=== PATIENT | female | born 1975 | race Caucasian/White ===

== ENCOUNTER 2024-06-15 15:32 | Emergency (ER) | payer OTHER, SELFPAY ==
--- NOTE | ~2024-06-15 | CT_ITS ---
EXAMINATION: CT brain wo con DATE: 06/15/2024 16:01 INDICATION: head injury . TECHNIQUE: Computed tomography (CT) of the head was performed without intravenous contrast. The mA wa s adjusted according to patient size. Iterative reconstruction technique was employed. The dose-lengt h product was 529.67 mGy-cm. COMPARISON: None. FINDINGS: No acute intracranial hemorrhage or extra-axial fluid collection. No hydrocephalus, mass, or herniation. No acute ischemic infarct. Unremarkable dural venous sinus attenuation. No acute osseous abnormality. Bilateral mastoid fluid. Pansinus mucosal thickening. Air-fluid level in the sphenoid sinus. IMPRESSION: No acute intracranial process. Sphenoid sinus findings may indicate acute sinusitis in the appropriate clinical context. Reviewed, dictated and finalized at location K. AGE [employer]ER IMPRESSION: No acute intracranial process. Sphenoid sinus findings may indicate acute sinusitis in the appropriate clinica l context.
--- NOTE | ~2024-06-15 | XR_ITS ---
EXAMINATION: XR chest 2V 06/15/2024 16:07 INDICATION: Seizure. PROCEDURE: PA and lateral views of the chest COMPARISON: None FINDINGS: The lungs are clear. The cardiomediastinal silhouette is within normal limits. There are no pleural effusions. There is no pneumothorax suspected. IMPRESSION: 1: NO ACUTE CARDIOPULMONARY DISEASE. Reviewed, dictated and finalized at location A. T STAFF
[2024-06-15 15:41] VITALS: BP 150/96; PULSE 85; RESP 20; TEMP 37; O2SAT 99
--- NOTE | 2024-06-15 15:48 | ECG_ITS ---
Test Date: 2024-06-15 16:37:09 Measurements Intervals [place] Rate: 77 P: 40 DC: 132 QRS: 49 QRSD: 82 T: 44 QT: 365 QTc: 415 Interpretive Statements SINUS RHYTHM POSSIBLE LEFT ATRIAL ENLARGEMENT [-0.1mV P WAVE IN V1/V2] No previous ECG available for comparison Electronically Signed On 06-15-2024 22:39:30 TALENT ADVISOR by Ashleigh Sprague M.D.
--- NOTE | 2024-06-15 15:48 | ED.SEIZURE ---
HPI - Seizure General Chief Complaint: Seizure <Mariajose Glynn PA-C - Last Filed: 06/15/24 15:49> Stated Complaint: seizure <Mariajose Glynn PA-C - Last Filed: 06/15/24 15:49> Time Seen by Provider: 06/15/24 22:34 <Mariajose Glynn PA-C - Last Filed: 06/15/24 15:49> Focused HPI: 48-year-old female presents to the ED with her reported seizure. 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 States her head hit her coworkers chest and immediately after she began to feel lightheaded and saw all white. She states she then woke up on the ground with her co-worker surrounding her and was told she had a seizure. She denies bowel or bladder incontinence, lip or tongue biting. She states she has a history of a seizure approximately 4 years ago due to alcohol withdrawal but she notes that she has been sober for 1 year. She denies vision changes, focal numbness or weakness, chest pain or shortness of breath. GENERAL: Well-appearing, well-nourished, and in no acute distress. HEAD: Normocephalic, atraumatic. CHEST: Clear to auscultation. ?No respiratory distress. HEART: Regular rate and rhythm.? NEURO: ?Alert and oriented x3. Patient screened in triage and initial orders placed.? ?Additional care and disposition to be based upon?diagnostic testing and treatment. <JASPER Ngo Last Filed: 06/15/24 15:49> Related Data Allergies/Adverse Reactions: Allergies Allergy/AdvReac Type Severity Reaction Status Date / Time No Known Allergies Allergy Verified 06/15/24 15:35 <Mariajose Glynn PA-C - Last Filed: 06/15/24 15:49> Review of Systems Review of Systems: All systems as dictated in HPI <JASPER Austin Last Filed: 06/15/24 23:46> Exam Narrative: GENERAL: Well-appearing, well-nourished, and in no acute distress. HEAD: Normocephalic, atraumatic. EYES: PERRLA and EOMI. ENT: Bilateral mastoid effusion present. Nares clear, no rhinorrhea or epistaxis. Mucous membranes moist. Oropharynx without tonsillar hypertrophy exudate or other lesions. NECK: Supple. No adenopathy or masses. CHEST: No respiratory distress. Clear to auscultation. No wheezes rales or rhonchi HEART: Regular rate and rhythm. No murmur heard. Normal peripheral pulses. ABDOMEN: Soft, nontender, nondistended, normal active bowel sounds. MSK: Normal range of motion. No edema. SKIN: Warm, dry, no rash. NEURO: Alert and oriented x4. No focal deficits. PSYCH: Normal mood and affect. <River Sauceda PA-C - Last Filed: 06/15/24 23:46> Course Vital Signs Vital signs: Vital Signs Temperature 98.6 F 06/15/24 15:41 Pulse Rate 85 06/15/24 15:41 Respiratory Rate 20 06/15/24 15:41 Blood Pressure 150/96 H 06/15/24 15:41 Pulse Oximetry 99 06/15/24 15:41 Temperature 98.6 F 06/15/24 15:41 Pulse Rate 82 06/15/24 22:30 Respiratory Rate 17 06/15/24 22:30 Blood Pressure 127/74 06/15/24 22:30 Pulse Oximetry 100 06/15/24 22:30 <Mariajose Glynn PA-C - Last Filed: 06/15/24 15:49> Vital Signs Temperature 98.6 F 06/15/24 15:41 Pulse Rate 85 06/15/24 15:41 Respiratory Rate 20 06/15/24 15:41 Blood Pressure 150/96 H 06/15/24 15:41 Pulse Oximetry 99 06/15/24 15:41 Temperature 98.6 F 06/15/24 15:41 Pulse Rate 82 06/15/24 22:30 Respiratory Rate 17 06/15/24 22:30 Blood Pressure 127/74 06/15/24 22:30 Pulse Oximetry 100 06/15/24 22:30 <River Sauceda PA-C - Last Filed: 06/15/24 23:46> MDM - Seizure MDM Narrative Medical decision making narrative: This is a 48-year-old female who presents to the ED for chief complaint of possible seizure today. Vitals are normal. Exam is unremarkable. Lab work grossly unremarkable. EKG shows sinus rhythm with no acute findings. UDS only positive for cannabinoids. Chest x-rays negative. CT head: IMPRESSION: No acute intracranial process. Sphenoid sinus findings may indicate acute sinusitis in the appropriate clinical context. Overall it would seem that her presentation is most likely consistent with syncope, noncardiac. She is describing symptoms of upper respiratory infection, congestion so sinusitis would clinically correlate as well. Rx for Augmentin given. Patient will be discharged in stable condition. Supportive measures discussed and return precautions given. Patient is understanding and agreeable with plan for discharge with PCP follow-up. <River Sauceda PA-C - Last Filed: 06/15/24 23:46> Lab Data Result diagrams: 06/15/24 16:41 06/15/24 16:41 <Mariajose Glynn PA-C - Last Filed: 06/15/24 15:49> Labs: Lab Results 06/15/24 06/15/24 Range/Units 16:41 16:51 WBC 3.2 L (4.5-10.0) K/mm3 RBC 4.35 (4.2-5.4) M/mm3 Hgb 13.2 (12.0-15.0) g/dL Hct 38.4 (37.0-47.0) % MCV 88.3 (80-100) fl MCH 30.3 (26-34) pg MCHC 34.4 (32-36) g/dl RDW 12.4 (11.5-14.5) % Plt Count 132 L (150-375) k/mm3 MPV 10.4 (7.4-10.4) fl Immature Gran % (Auto) 0.3 (0-0.5) % Neut % (Auto) 67.1 (45.5-73.1) % Lymph % (Auto) 22.6 (18.3-44.2) % [place] % (Auto) 8.5 (2.6-8.5) % Eos % (Auto) 0.9 (0-4.4) % Baso % (Auto) 0.6 (0.2-1.2) % Lymph # (Auto) 0.72 L (0.9-3.2) K/mm3 [place] # (Auto) 0.3 (0.1-0.6) K/mm3 Eos # (Auto) 0.0 (0-0.3) K/mm3 Baso # (Auto) 0.0 (0.0-0.1) K/mm3 Abs Immat Gran (auto) 0.01 (0.00-0.031) K/mm3 Absolute Neuts (auto) 2.1 (1.3-6.7) K/mm3 Absolute Nucleated RBC 0.000 (0.0-0.012) K/mm3 Nucleated RBC % 0.0 (0.0-0.2) % % Immature Plt Fraction 6.0 (0.9-11.2) % PT 12.6 (11.1-14.7) Seconds INR 0.9 APTT 25.4 (22.3-36.8) Seconds Sodium 139 (137-145) mmol/L Potassium 3.7 (3.4-5.0) mmol/L Chloride 104 (98-107) mmol/L Carbon Dioxide 29 (22-30) mmol/L Anion Gap 6 (4-12) mmol/L BUN 15 (7-17) mg/dL Creatinine 0.70 (0.7-1.0) mg/dL Estim Creat Clear Calc 61 ml/min Estimated GFR > 60 (59 - ) Glucose 93 (65-110) mg/dL Calcium 9.4 (8.4-10.2) mg/dL Total Bilirubin 0.4 (0.2-1.3) mg/dL AST 47 H (14-36) U/L ALT 38 H (6-35) U/L Alkaline Phosphatase 58 (38-126) U/L Troponin I < 0.012 (0.000-0.034) ng/mL Total Protein 8.0 (6.3-8.2) g/dL Albumin 4.9 (3.5-5.1) g/dL Urine Color Yellow (Yellow) Urine Appearance Clear (Clear) Urine pH 6.0 (5.0-9.0) Ur Specific [place] 1.020 (1.001-1.035) Urine Protein Trace (Negative) mg/dL Urine Glucose (UA) Negative (Negative) mg/dL Urine Ketones Negative (Negative) mg/dL Ur Blood (Man) Negative (Negative) Urine Nitrate Negative (Negative) Urine Bilirubin Negative (Negative) Urine Urobilinogen 1.0 (<2.0) mg/dL Leukocyte Esterase Rfl Negative (Negative) CHERI/UL Urine RBC 3-5 H (0-2) /hpf Urine WBC 0-5 (0-3) /hpf Ur Squamous Epith Cells Occasional (Few) /hpf Urine Bacteria None seen /hpf Urine Casts 0-2 POC Urine HCG, Qual Negative (Negative) Urine Opiates Screen Negative (Negative) Urine Methadone Screen Negative (Negative) Ur Barbiturates Screen Negative (Negative) Ur Phencyclidine Scrn Negative (Negative) Ur Amphetamine Screen Negative (Negative) U Benzodiazepines Scrn Negative (Negative) Urine Cocaine Screen Negative (Negative) U Cannabinoids Screen Positive A (Negative) Ethyl Alcohol < 10 (<10) mg/dL <Mariajose Glynn PA-C - Last Filed: 06/15/24 15:49> Lab Results 06/15/24 06/15/24 Range/Units 16:41 16:51 WBC 3.2 L (4.5-10.0) K/mm3 RBC 4.35 (4.2-5.4) M/mm3 Hgb 13.2 (12.0-15.0) g/dL Hct 38.4 (37.0-47.0) % MCV 88.3 (80-100) fl MCH 30.3 (26-34) pg MCHC 34.4 (32-36) g/dl RDW 12.4 (11.5-14.5) % Plt Count 132 L (150-375) k/mm3 MPV 10.4 (7.4-10.4) fl Immature Gran % (Auto) 0.3 (0-0.5) % Neut % (Auto) 67.1 (45.5-73.1) % Lymph % (Auto) 22.6 (18.3-44.2) % [place] % (Auto) 8.5 (2.6-8.5) % Eos % (Auto) 0.9 (0-4.4) % Baso % (Auto) 0.6 (0.2-1.2) % Lymph # (Auto) 0.72 L (0.9-3.2) K/mm3 [place] # (Auto) 0.3 (0.1-0.6) K/mm3 Eos # (Auto) 0.0 (0-0.3) K/mm3 Baso # (Auto) 0.0 (0.0-0.1) K/mm3 Abs Immat Gran (auto) 0.01 (0.00-0.031) K/mm3 Absolute Neuts (auto) 2.1 (1.3-6.7) K/mm3 Absolute Nucleated RBC 0.000 (0.0-0.012) K/mm3 Nucleated RBC % 0.0 (0.0-0.2) % % Immature Plt Fraction 6.0 (0.9-11.2) % PT 12.6 (11.1-14.7) Seconds INR 0.9 APTT 25.4 (22.3-36.8) Seconds Sodium 139 (137-145) mmol/L Potassium 3.7 (3.4-5.0) mmol/L Chloride 104 (98-107) mmol/L Carbon Dioxide 29 (22-30) mmol/L Anion Gap 6 (4-12) mmol/L BUN 15 (7-17) mg/dL Creatinine 0.70 (0.7-1.0) mg/dL Estim Creat Clear Calc 61 ml/min Estimated GFR > 60 (59 - ) Glucose 93 (65-110) mg/dL Calcium 9.4 (8.4-10.2) mg/dL Total Bilirubin 0.4 (0.2-1.3) mg/dL AST 47 H (14-36) U/L ALT 38 H (6-35) U/L Alkaline Phosphatase 58 (38-126) U/L Troponin I < 0.012 (0.000-0.034) ng/mL Total Protein 8.0 (6.3-8.2) g/dL Albumin 4.9 (3.5-5.1) g/dL Urine Color Yellow (Yellow) Urine Appearance Clear (Clear) Urine pH 6.0 (5.0-9.0) Ur Specific [place] 1.020 (1.001-1.035) Urine Protein Trace (Negative) mg/dL Urine Glucose (UA) Negative (Negative) mg/dL Urine Ketones Negative (Negative) mg/dL Ur Blood (Man) Negative (Negative) Urine Nitrate Negative (Negative) Urine Bilirubin Negative (Negative) Urine Urobilinogen 1.0 (<2.0) mg/dL Leukocyte Esterase Rfl Negative (Negative) CHERI/UL Urine RBC 3-5 H (0-2) /hpf Urine WBC 0-5 (0-3) /hpf Ur Squamous Epith Cells Occasional (Few) /hpf Urine Bacteria None seen /hpf Urine Casts 0-2 POC Urine HCG, Qual Negative (Negative) Urine Opiates Screen Negative (Negative) Urine Methadone Screen Negative (Negative) Ur Barbiturates Screen Negative (Negative) Ur Phencyclidine Scrn Negative (Negative) Ur Amphetamine Screen Negative (Negative) U Benzodiazepines Scrn Negative (Negative) Urine Cocaine Screen Negative (Negative) U Cannabinoids Screen Positive A (Negative) Ethyl Alcohol < 10 (<10) mg/dL <River Sauceda PA-C - Last Filed: 06/15/24 23:46> ECG Data EKG #1: ECG completion date: 06/15/24 <JASPER Austin Last Filed: 06/15/24 23:46> ECG completion time: 16:37 <JASPER Austin Last Filed: 06/15/24 23:46> Prior ECG tracings: not available for review <River Sauceda PA-C - Last Filed: 06/15/24 23:46> Interpretation: Sinus rhythm Rate 77 No acute ischemic findings <River Sauceda PA-C - Last Filed: 06/15/24 23:46> Discharge Plan Discharge Clinical Impression: Episode of syncope, Sinusitis <Mariajose Glynn PA-C - Last Filed: 06/15/24 15:49> Patient Disposition: Home, Self-Care <Mariajose Glynn PA-C - Last Filed: 06/15/24 15:49> Condition: Stable <JASPER Ngo Last Filed: 06/15/24 15:49> Instructions: Antibiotic Form <Mariajose Glynn PA-C - Last Filed: 06/15/24 15:49> Additional Instructions: Exam and imaging today are reassuring. There is evidence of sinus infection. Please take antibiotics as prescribed. Use regular Tylenol for pain or fevers. Stay well hydrated and follow-up with PCP. If you have any new or worsening symptoms please return to the ER for further evaluation. <Mariajose Glynn PA-C - Last Filed: 06/15/24 15:49> Patient Language: Irish <Mariajose Glynn PA-C - Last Filed: 06/15/24 15:49> Prescriptions: New amoxicillin-pot clavulanate 875-125 mg tablet 1 tablet PO Q12H Qty: 14 0RF <Mariajose Glynn PA-C - Last Filed: 06/15/24 15:49> Follow-up/Referrals: UNKNOWN,DOCTOR [Primary Care Provider] - <Mariajose Glynn PA-C - Last Filed: 06/15/24 15:49> Stand Alone Forms: Work/School Release IP <Mariajose Glynn PA-C - Last Filed: 06/15/24 15:49> Time of Disposition: 22:47 <Mariajose Glynn PA-C - Last Filed: 06/15/24 15:49> 22:47 <River Sauceda PA-C - Last Filed: 06/15/24 23:46>
[2024-06-15 16:52] LABS: Basophils Percent Auto 0.6 % (0.2-1.2); Eosinophils Percent Auto 0.9 % (0-4.4); Hematocrit 38.4 % (37.0-47.0); Hemoglobin 13.2 g/dL (12.0-15.0); Immature Granulocyte Absolute 0.01 K/mm3 (0.00-0.031); Immature Granulocyte Percent A 0.3 % (0-0.5); Lymphocytes Absolute Auto 0.72 K/mm3 (0.9-3.2); Lymphocytes Percent Auto 22.6 % (18.3-44.2); Mean Corpuscular HGB Conc 34.4 g/dl (32-36); Mean Corpuscular Hemoglobin 30.3 pg (26-34); Mean Corpuscular Volume 88.3 fl (80-100); Mean Platelet Volume 10.4 fl (7.4-10.4); Monocytes Absolute Auto 0.3 K/mm3 (0.1-0.6); Monocytes Percent Auto 8.5 % (2.6-8.5); Neutrophils Absolute Auto 2.1 K/mm3 (1.3-6.7); Neutrophils Percent Auto 67.1 % (45.5-73.1); Platelet Count Result 132 k/mm3 (150-375); Red Blood Count 4.35 M/mm3 (4.2-5.4); Red Cell Distribution Width 12.4 % (11.5-14.5); White Blood Count 3.2 K/mm3 (4.5-10.0)
[2024-06-15 16:53] LABS: BEDSIDEPREGUCG Negative (Negative)
[2024-06-15 16:53] LABS: Add Urine Microscopic? YES; Appearance Urine Clear (Clear); Bacteria Urine None Seen /hpf; Bilirubin Urine Negative (Negative); Blood Urine Negative (Negative); Color Urine Yellow (Yellow); Glucose Urine UA Negative (Negative); Ketones Urine Negative (Negative); Leukocyte Esterase Ur Negative LEU/UL (Negative); Nitrate Urine Negative (Negative); Non Pathogenic Casts 0-2; Protein Urine Trace mg/dL (Negative); Squamous Epithelial Cell Urine Occasional /hpf (Few); WBC Urine 0-5 /hpf (0-3)
[2024-06-15 16:59] LABS: Ethanol < 10 mg/dL (<10)
[2024-06-15 17:01] LABS: Alanine Aminotransferase 38 U/L (6-35); Albumin Level 4.9 g/dL (3.5-5.1); Alkaline Phosphatase 58 U/L (38-126); Anion Gap 6 mmol/L (4-12); Aspartate Amino Transferase 47 U/L (14-36); Bilirubin,Total 0.4 mg/dL (0.2-1.3); Blood Urea Nitrogen 15 mg/dL (7-17); Calcium 9.4 mg/dL (8.4-10.2); Carbon Dioxide 29 mmol/L (22-30); Chloride 104 mmol/L (98-107); Estimated CRCL calculation 61 ml/min; Estimated Glomerular Filt Rate > 60; Glucose 93 mg/dL (65-110); Potassium 3.7 mmol/L (3.4-5.0); Sodium 139 mmol/L (137-145)
[2024-06-15 17:10] LABS: Amphetamine Screen Urine Negative (Negative); Barbiturate Screen Urine Negative (Negative); Benzodiazepines Screen Urine Negative (Negative); Cannabinoid Screen Urine Positive (Negative); Cocaine Screen Urine Negative (Negative); Methadone Screen Urine Negative (Negative); Opiate Screen Urine Negative (Negative); Phencyclidine Screen Urine Negative (Negative)
[2024-06-15 17:11] LABS: INR 0.9; Prothrombin Time 12.6 Seconds (11.1-14.7)
[2024-06-15 17:12] LABS: Partial Thromboplastin Time 25.4 Seconds (22.3-36.8)
[2024-06-15 17:13] LABS: Troponin I < 0.012 ng/mL (0.000-0.034)
[2024-06-15 22:30] VITALS: BP 127/74; PULSE 82; RESP 17; O2SAT 100
[2024-06-15] MEDS: AMOXICILLIN/CLAVULANATE K 875-125 MG TAB 1 TABLET PO (23:14)
== END 2024-06-15 23:23 | disposition home or self-care (01) ==
LOC: ANHED 23:11
PROVIDERS: Physician Assistant; Emergency Provider Physician Assistant
DX: R55 Syncope and collapse (principal); J01.90 Acute sinusitis, unspecified
CPT/HCPCS: 36415; 70450; 71046; 80053; 80307; 81001; 81025; 82077; 84484; 85025; 85055; 85610; 85730; 93005; 99284; A9270